=== PATIENT | male | born 2000 | race Caucasian/White ===

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

== ENCOUNTER 2020-10-02 20:18 | Emergency (ER) | payer OTHER ==
[~2020-10-02] VITALS: Ht 180.3 cm; Wt 56.7 kg
[~2020-10-02 20:18] MED LIST: CLOTRIMAZOLE AF TOP
[2020-10-02 20:41] LABS: BASOPHILS ABSOLUTE AUTO 0.04 K/mm3 (0.00-0.23); BASOPHILS PERCENT AUTO 1 % (0-2); EOSINOPHILS ABSOLUTE AUTO 0.06 K/mm3 (0.00-0.68); EOSINOPHILS PERCENT AUTO 1 % (0-6); Hemoglobin 15.3 g/dL (13.5-17.5); IMMATURE GRAN ABSOLUTE AUTO 0.02 K/mm3 (0.00-0.10); IMMATURE GRAN PERCENT AUTO 0 % (0-1); LYMPHOCYTES ABSOLUTE AUTO 3.02 K/mm3 (0.84-5.20); LYMPHOCYTES PERCENT AUTO 36 % (21-46); MONOCYTES PERCENT AUTO 6 % (4-13); Mean Corpuscular HGB 32.2 pg (26.0-34.0); Mean Corpuscular HGB Conc 35.6 g/dL (31.5-36.5); Mean Corpuscular Volume 91 fL (80-100); Mean Platelet Volume 9.8 fL (9.1-12.4); NEUTROPHILS ABSOLUTE AUTO 4.71 K/mm3 (1.96-9.15); NEUTROPHILS PERCENT AUTO 56 % (41-73); Platelet Count 213 K/mm3 (150-400); RDW Coefficient Variation 11.4 % (11.7-14.2); RDW Standard Deviation 37.9 fL (35.1-46.3); Red Blood Cell Count 4.75 M/mm3 (4.30-5.90); White Blood Cell Count 8.35 K/mm3 (4.00-11.30)
[2020-10-02 21:07] LABS: Alanine Aminotransfer (ALT/SGP 22 U/L (12-78); Albumin, Blood 4.5 g/dL (3.4-5.0); Albumin/Globulin Ratio 1.4 (0.8-1.8); Alk Phos 62 U/L (50-136); Anion Gap 7 mmol/L (6-16); Aspartate Aminotrans (AST/SGOT 14 U/L (12-37); Bilirubin, Total 0.6 mg/dL (0.1-1.0); Blood Urea Nitrogen 13 mg/dL (8-24); Bun/Creatinine Ratio 13.1 (12.0-20.0); CO2, Blood 28 mmol/L (21-32); Calcium, Blood 9.2 mg/dL (8.5-10.1); Chloride, Blood 105 mmol/L (98-108); Creatinine, Blood 0.99 mg/dL (0.60-1.20); Ferritin, Serum 220 ng/mL (26-388); Globulin, Blood 3.3 g/dL (2.2-4.0); Glomerular Filtration Rate >60 (60-); Glucose, Blood 88 mg/dL (70-99); Iron Serum 116 ug/dL (65-175); Percent Saturation 38.2 % (20.0-50.0); Sodium, Blood 140 mmol/L (136-145); Total Iron Binding Capacity 304 ug/dL (250-450); Total Protein, Blood 7.8 g/dL (6.4-8.2)
== END 2020-10-02 21:31 | disposition home or self-care (01) ==
LOC: ER 20:18
PROVIDERS: Physician Assistant
DX: R04.0 Epistaxis (principal); F17.200 Nicotine dependence, unspecified, uncomplicated
CPT/HCPCS: 36415; 80053; 82728; 83540; 83550; 85025; 99283

== ENCOUNTER 2022-02-06 10:32 | Emergency (ER) | payer SELFPAY ==
[~2022-02-06] VITALS: Ht 180.3 cm; Wt 68.0 kg
[2022-02-06] MEDS ORDERED: Veetids 500500 MG PO (11:10)
== END 2022-02-06 11:12 | disposition home or self-care (01) ==
LOC: ER 10:32
DX: J02.0 Streptococcal pharyngitis (principal); F17.200 Nicotine dependence, unspecified, uncomplicated
CPT/HCPCS: 99283

== ENCOUNTER 2023-02-22 13:55 | Emergency (ER) | payer SELFPAY ==
[~2023-02-22] VITALS: Ht 180.3 cm; Wt 59.0 kg
[~2023-02-22 13:55] MED LIST changes: +Veetids 500500 MG PO
[2023-02-22 13:59] VITALS: BP 160/90
[2023-02-22 15:17] LABS: Influenza A, PCR NEGATIVE (NEGATIVE); Influenza B, PCR NEGATIVE (NEGATIVE); Resp Syncytial Virus, PCR NEGATIVE (NEGATIVE); SARS-Cov-2 (COVID-19) PCR, MMC NEGATIVE (NEGATIVE)
== END 2023-02-22 15:32 | disposition home or self-care (01) ==
LOC: ER 13:55
PROVIDERS: Student in an Organized Health Care Education/Training Program
DX: J06.9 Acute upper respiratory infection, unspecified (principal); F17.200 Nicotine dependence, unspecified, uncomplicated
CPT/HCPCS: 0241U; 71046; 99283-25

== ENCOUNTER 2023-06-27 08:16 | Emergency (ER) | payer SELFPAY ==
[~2023-06-27] VITALS: Ht 182.9 cm; Wt 59.0 kg
[2023-06-27 08:38] VITALS: BP 119/98
[2023-06-27] MEDS ORDERED: AMOCLA875 PO (08:43)
== END 2023-06-27 08:50 | disposition home or self-care (01) ==
LOC: ER 08:16
DX: J32.9 Chronic sinusitis, unspecified (principal); B96.89 Other specified bacterial agents as the cause of diseases classified elsewhere; F17.200 Nicotine dependence, unspecified, uncomplicated
CPT/HCPCS: 99282

== ENCOUNTER 2024-06-10 15:06 | Emergency (ER) | payer SELFPAY ==
[~2024-06-10] VITALS: Ht 182.9 cm; Wt 59.0 kg
[~2024-06-10 15:06] MED LIST changes: +AMOCLA875 PO
[2024-06-10 15:12] VITALS: BP 150/85
[2024-06-10 16:02] LABS: BASOPHILS ABSOLUTE AUTO 0.05 K/mm3 (0.00-0.23); BASOPHILS PERCENT AUTO 1 % (0-2); EOSINOPHILS ABSOLUTE AUTO 0.06 K/mm3 (0.00-0.68); EOSINOPHILS PERCENT AUTO 1 % (0-6); Hematocrit 48.9 % (37.0-53.0); Hemoglobin 17.4 g/dL (13.5-17.5); IMMATURE GRAN ABSOLUTE AUTO 0.02 K/mm3 (0.00-0.10); IMMATURE GRAN PERCENT AUTO 0 % (0-1); LYMPHOCYTES ABSOLUTE AUTO 2.42 K/mm3 (0.84-5.20); LYMPHOCYTES PERCENT AUTO 31 % (21-46); MONOCYTES ABSOLUTE AUTO 0.54 K/mm3 (0.16-1.47); MONOCYTES PERCENT AUTO 7 % (4-13); Mean Corpuscular HGB 32.8 pg (26.0-34.0); Mean Corpuscular HGB Conc 35.6 g/dL (31.5-36.5); Mean Corpuscular Volume 92 fL (80-100); Mean Platelet Volume 9.6 fL (9.1-12.4); NEUTROPHILS ABSOLUTE AUTO 4.69 K/mm3 (1.96-9.15); NEUTROPHILS PERCENT AUTO 60 % (41-73); Platelet Count 250 K/mm3 (150-400); RDW Coefficient Variation 11.9 % (11.7-14.2); Red Blood Cell Count 5.31 M/mm3 (4.30-5.90); White Blood Cell Count 7.78 K/mm3 (4.00-11.30)
[2024-06-10 16:22] LABS: Albumin, Blood 4.6 g/dL (3.4-5.0); Albumin/Globulin Ratio 1.2 (0.8-1.8); Bilirubin, Total 1.4 mg/dL (0.1-1.0); Bun/Creatinine Ratio 14.7 (12.0-20.0); Calcium, Blood 9.2 mg/dL (8.5-10.1); Creatinine, Blood 1.02 mg/dL (0.60-1.20); Globulin, Blood 3.7 g/dL (2.2-4.0); Potassium, Blood 3.5 mmol/L (3.5-5.5); Total Protein, Blood 8.3 g/dL (6.4-8.2)
== END 2024-06-10 17:17 | disposition home or self-care (01) ==
LOC: ER 15:06
PROVIDERS: Physician Assistant
DX: R07.9 Chest pain, unspecified (principal); F17.200 Nicotine dependence, unspecified, uncomplicated; Z79.2 Long term (current) use of antibiotics; Z59.89 Other problems related to housing and economic circumstances
CPT/HCPCS: 71046; 80053; 85025; 93005; 93010; 99285-25

== ENCOUNTER 2024-12-31 08:46 | Emergency (ER) | payer SELFPAY ==
[~2024-12-31] VITALS: Ht 182.9 cm; Wt 59.0 kg
[2024-12-31] MEDS ORDERED: Ketorolac Tromethamine 15mg Vial IV ONE (09:40)
[2024-12-31 09:55] VITALS: BP 128/82
[2024-12-31] MEDS ORDERED: Ketorolac Tromethamine 15mg Vial IM ONE (10:05)
[2024-12-31 10:50] LABS: Influenza A, PCR NEGATIVE (NEGATIVE); Influenza B, PCR NEGATIVE (NEGATIVE); Resp Syncytial Virus, PCR NEGATIVE (NEGATIVE); SARS-Cov-2 (COVID-19) PCR, MMC NEGATIVE (NEGATIVE)
== END 2024-12-31 11:23 | disposition home or self-care (01) ==
LOC: ER 08:46
PROVIDERS: Student in an Organized Health Care Education/Training Program
DX: J06.9 Acute upper respiratory infection, unspecified (principal); J34.89 Other specified disorders of nose and nasal sinuses; R59.0 Localized enlarged lymph nodes; F17.200 Nicotine dependence, unspecified, uncomplicated; Z79.2 Long term (current) use of antibiotics
CPT/HCPCS: 87081; 87430; 87637; 96372; 99283-25; A9270; J1885

== ENCOUNTER 2025-01-02 19:49 | Emergency (ER) | payer SELFPAY ==
[~2025-01-02] VITALS: Ht 182.9 cm; Wt 59.0 kg
[2025-01-02 22:33] VITALS: BP 128/75
== END 2025-01-02 22:34 | disposition home or self-care (01) ==
LOC: ER 19:49
DX: J02.9 Acute pharyngitis, unspecified (principal); F17.200 Nicotine dependence, unspecified, uncomplicated
CPT/HCPCS: 99282